=== PATIENT | male | born 1990 | race Caucasian/White ===

== ENCOUNTER 2020-01-30 22:16 | Emergency (ER) | payer SELFPAY ==
[~2020-01-30] VITALS: Ht 172.7 cm; Wt 72.6 kg
[2020-01-30 22:28] VITALS: BP 133/70; Ht 172.7 cm; Wt 72.6 kg
[2020-01-30 23:36] LABS: CALCIUM 8.7 mg/dL (8.5-10.1); CARBON DIOXIDE 24.6 mmol/L (21-32); CHLORIDE SERUM 109 mmol/L (98-107); CREATININE SERUM 0.9 mg/dL (0.7-1.3); GFR1 > 60 mL/min; GLUCOSE SERUM 93 mg/dL (74-106); POTASSIUM SERUM 3.2 mmol/L (3.5-5.1); SODIUM SERUM 144 mmol/L (136-145)
[2020-01-30 23:38] LABS: BASOPHIL % 0.4 % (0-2); PLATELET COUNT 284 x10^3mcL (130-400); RED CELL DISTRIBUTION WIDTH 13.3 % (11.5-14.5)
[2020-01-30 23:40] LABS: ALBUMIN 3.8 g/dL (3.4-5.0); ALKALINE PHOSPHATASE 89 U/L (46-116); ALT/SGPT 38 U/L (16-63); AST/SGOT 25 U/L (15-37); LIPASE 154 IU/L (73-393); TOTAL PROTEIN, SERUM 6.7 g/dL (6.4-8.2)
== END 2020-01-31 00:21 | disposition left against medical advice (07) ==
LOC: ED 22:16 → EDBD 22:16 → ED 01-31 00:21
PROVIDERS: Emergency Medicine
DX: R10.9 Unspecified abdominal pain (principal); R11.0 Nausea
CPT/HCPCS: J2270; J2405; J7030